=== PATIENT | male | born 1935 | race Caucasian/White ===

== ENCOUNTER 2017-02-06 14:16 | Outpatient (CLI) | payer MEDICARE, OTHER ==
[2015-11-01 05:51] VITALS: BP 141/64
[2017-02-06 14:41] LABS: BASOPHILS % 1.4 (0.0-1.5); EOSINOPHILS % 1.5 % (0.0-6.8); MEAN CORPUSCULAR HEMOGLOBIN 31.7 pg (28.0-34.0); MONOCYTES % 7.5 % (0.0-11.0); NEUTROPHILS # 3.9 # k/uL (1.4-7.7)
[2017-02-06 15:01] LABS: eGFR (African) > 60; eGFR (Non-African) > 60
--- NOTE | 2017-02-06 15:22 | Diagnostic Imaging Report ---
[facility] [address] [facility].[address] [address] Report Submission Date: February 06, 2017 3:08:11 PM CDT Patient Study Name: ISH CAMACHO Date: February 06, 2017 2:43:48 PM CDT Modality Type: CR Gender: M Description: CHEST : 37 Institution: [facility] [place] [facility] Physician: TRINIDAD ADAM - ANJELICA 2 views of the chest History: CHEST PAIN. COUGH. SHORTNESS OF BREATH Findings: Comparison: November 01, 2015 Low lung volumes Patchy opacity right lung base. Minimal left basal atelectasis. No pleural effusion or pneumothorax No acute osseous pathology Demineralized bones with degenerative changes of the thoracic spine Impression: 1. Left basilar atelectasis. 2. Right basilar patchy airspace disease with vascular crowding due to low lung volumes. Electronically signed on February 06, 2017 3:08:11 PM CDT by: Cassandra PANTOJA
== END 2017-02-06 14:17 ==
LOC: RT 14:16
PROVIDERS: ATTEND Family Medicine
DX: R07.89 Other chest pain (principal)
CPT/HCPCS: 36415; 71020; 80048; 84484; 85025

== ENCOUNTER 2017-05-31 13:33 | Outpatient (CLI) | payer MEDICARE, OTHER ==
[2015-11-01 05:51] VITALS: BP 141/64
[2017-05-31 13:50] LABS: BASOPHILS % 1.7 (0.0-1.5); EOSINOPHILS % 4.9 % (0.0-6.8); MEAN CORPUSCULAR HEMOGLOBIN 30.6 pg (28.0-34.0); MEAN CORPUSCULAR VOLUME 87.9 fl (80.0-100.0); MONOCYTES % 7.6 % (0.0-11.0); NEUTROPHILS # 4.6 # k/uL (1.4-7.7)
[2017-05-31 14:17] LABS: eGFR (African) 58; eGFR (Non-African) 48
== END 2017-05-31 13:34 ==
LOC: LAB 13:33
PROVIDERS: ATTEND Family Medicine
DX: R42 Dizziness and giddiness (principal)
CPT/HCPCS: 36415; 80053; 85025

== ENCOUNTER 2017-07-11 13:58 | Outpatient (CLI) | payer MEDICARE, OTHER ==
[2015-11-01 05:51] VITALS: BP 141/64
== END 2017-07-11 14:00 ==
LOC: CARD 13:58
PROVIDERS: ATTEND Internal Medicine Cardiovascular Disease
DX: I25.10 Atherosclerotic heart disease of native coronary artery without angina pectoris (principal); I10 Essential (primary) hypertension; E78.5 Hyperlipidemia, unspecified
CPT/HCPCS: G0463

== ENCOUNTER 2017-07-25 13:21 | Outpatient (CLI) | payer MEDICARE, OTHER ==
[2015-11-01 05:51] VITALS: BP 141/64
== END 2017-07-25 13:22 ==
LOC: CARD 13:21
PROVIDERS: ATTEND Internal Medicine Cardiovascular Disease
DX: I42.9 Cardiomyopathy, unspecified (principal)
CPT/HCPCS: 93350

== ENCOUNTER 2017-11-02 13:16 | Outpatient (CLI) | payer MEDICARE, OTHER ==
[2015-11-01 05:51] VITALS: BP 141/64
[2017-11-02 13:47] LABS: BASOPHILS % 1.5 (0.0-1.5); MEAN CORPUSCULAR HEMOGLOBIN 30.1 pg (28.0-34.0); MEAN CORPUSCULAR VOLUME 91.5 fl (80.0-100.0); MONOCYTES % 6.3 % (0.0-11.0); NEUTROPHILS # 3.9 # k/uL (1.4-7.7)
[2017-11-02 14:19] LABS: eGFR (African) > 60; eGFR (Non-African) 52
== END 2017-11-02 13:18 ==
LOC: LAB 13:16
PROVIDERS: ATTEND Family Medicine
DX: R73.9 Hyperglycemia, unspecified (principal); R20.2 Paresthesia of skin
CPT/HCPCS: 36415; 80053; 82607; 82746; 83036; 84443; 85025

== ENCOUNTER 2018-01-25 14:30 | Outpatient (CLI) | payer MEDICARE, OTHER ==
[2015-11-01 05:51] VITALS: BP 141/64
[2018-01-25 14:54] LABS: MEAN CORPUSCULAR HEMOGLOBIN 30.5 pg (28.0-34.0); MEAN CORPUSCULAR VOLUME 92.7 fl (80.0-100.0)
[2018-01-25 15:12] LABS: eGFR (African) > 60; eGFR (Non-African) 56
== END 2018-01-25 14:32 ==
LOC: LAB 14:30
PROVIDERS: ATTEND Family Medicine
DX: E11.9 Type 2 diabetes mellitus without complications (principal); R53.83 Other fatigue
CPT/HCPCS: 36415; 80053; 83036; 84443; 85027

== ENCOUNTER 2018-02-14 14:25 | Outpatient (CLI) | payer MEDICARE, OTHER ==
[2015-11-01 05:51] VITALS: BP 141/64
--- NOTE | 2018-02-16 13:36 | OP Clinic Progress Note ---
REASON FOR VISIT: This 83-year-old man with hearing aids has had his ears cleaned but it is still rock hard in the left ear canal. He wears hearing aids. Most of the debris in the right ear has been cleaned. I cleaned a little additional from the right ear canal under the microscope. Under the microscope, I cleaned a significant amount of rock hard inspissated skin and old fungus. He is fairly markedly improved. He still has a mild otitis externa that is secondary to the hard compression of the skin and micro-debris. PLAN: I recommended some antifungal cream for a small cellulitis of the conchal bowel. I suggested getting his ears recheck and recleaned in about 6 months before they both occlude and cause significant otitis externa. The patient has chosen to make an appointment on his own recognizance on a p.r.n. basis. cc: Dr. Christiana PANTOJA
== END 2018-02-14 14:30 ==
LOC: ENT 14:25
PROVIDERS: ATTEND Otolaryngology
DX: H60.93 Unspecified otitis externa, bilateral (principal); H61.23 Impacted cerumen, bilateral
CPT/HCPCS: 69210; G0463

== ENCOUNTER 2019-06-05 13:45 | Outpatient (CLI) | payer MEDICARE, OTHER ==
[2015-11-01 05:51] VITALS: BP 141/64
[2019-06-05 14:15] LABS: BASOPHILS % 0.5 % (0.0-1.5); NEUTROPHILS # 4.4 # k/uL (1.4-7.7)
[2019-06-05 14:34] LABS: eGFR (Non-African) 53
--- NOTE | 2019-06-06 10:24 | Diagnostic Imaging Report ---
TRINIDAD ADAM [facility] [address] [facility] [address] [place] [address]. [id number] Report Submission Date: Jun 05, 2019 2:37:22 PM CDT Patient Study Name: ISH CAMACHO Date: Jun 05, 2019 1:59:08 PM CDT Modality Type: DX Gender: M Description: ABDOMEN 1VIEW : 37 Institution: [facility] Physician: TRINIDAD ADAM Exam: Single-view abdomen. History: Right lower quadrant pain. No previous studies are available for comparison. Scattered loops of bowel gas in both large and small intestine is noted with a moderate amount of retained fecal material seen in the colon. A rounded calcification in the right upper quadrant could represent gallstone. It is difficult to exclude ureteral stones on this study due to the numerous phleboliths in the pelvis. Degenerate changes in the lumbar spine is noted. Impression: Nonspecific bowel gas pattern. Probable gallstone. Difficult to exclude distal ureteral stones. CT may be necessary to further evaluate. Electronically signed on Jun 05, 2019 2:37:22 PM CDT by: Carson PANTOJA
== END 2019-06-05 13:47 ==
LOC: RAD 13:45
PROVIDERS: ATTEND Family Medicine
DX: R10.31 Right lower quadrant pain (principal)
CPT/HCPCS: 36415; 74018; 80053; 85025

== ENCOUNTER 2019-06-06 12:38 | Outpatient (CLI) | payer MEDICARE, OTHER ==
[2015-11-01 05:51] VITALS: BP 141/64
--- NOTE | 2019-06-13 09:21 | Diagnostic Imaging Report ---
TRINIDAD ADAM [facility] [address] [facility] [address] [place], [place]. [address] Report Submission Date: Jun 06, 2019 1:55:59 PM CDT Patient Study Name: ISH CAMACHO Date: Jun 06, 2019 12:43:28 PM CDT Modality Type: CT\SR Gender: M Description: CT ABD PELVIS W/O CO : 37 Institution: [facility] Physician: TRINIDAD ADAM Exam: CT abdomen and pelvis without contrast. History: Right upper quadrant pain. Axial images through the abdomen and pelvis without oral or IV contrast is submitted along with sagittal and coronal reformatted images. Calcified granuloma in the posterior right lower lung field is noted. No kamilah consolidation or effusion in the visualized lower lung chandler are noted. No free intraperitoneal air is identified. A 1.6 cm stone in the neck of the gallbladder is identified. Punctate calcifications in the liver may indicate old granulomatous disease. No other space-occupying lesion in the liver or spleen is noted. The pancreas is normal in attenuation. The adrenal glands are normal configuration. The abdominal aorta is of normal caliber and associated with atherosclerotic plaque. No periaortic lymphadenopathy is identified. Bilateral renal stones are identified. No hydronephrosis or hydroureter is identified. The urinary bladder is distended without intrinsic filling defect. The appendix is of normal configuration. The small bowel is of normal caliber. Air and stool seen throughout the large intestine. No inflammatory changes in the mesentery or ascites are identified. Diverticula in the sigmoid colon is noted. Degenerate changes in the lumbar spine are noted. Impression: Old granulomatous disease. Cholelithiasis. Bilateral renal stones. No hydronephrosis or hydroureter. The appendix is of normal configuration. No inflammatory changes in the mesentery or ascites is identified. Nonspecific bowel gas pattern. Sigmoid diverticulosis. Electronically signed on Jun 06, 2019 1:55:59 PM CDT by: Carson APNTOJA
== END 2019-06-06 12:40 ==
LOC: RAD 12:38
PROVIDERS: ATTEND Family Medicine
DX: R10.31 Right lower quadrant pain (principal)
CPT/HCPCS: 74176

== ENCOUNTER 2019-08-14 14:47 | Outpatient (CLI) | payer MEDICARE, OTHER ==
[2015-11-01 05:51] VITALS: BP 141/64
--- NOTE | 2019-08-15 06:08 | Diagnostic Imaging Report ---
PATIENT MR#: [id number] PATIENT PATIENT NAME: ISH CAMACHO DATE OF : 1935 REFERRING PHYSICIAN: Newton Lopez EXAM DATE: 08/14/2019 ACCESSION NUMBER: [id number] EXAM DESCRIPTION: CHEST 2VIEW HISTORY: Chest pain with HX of CAD. COMPARISON: February 06, 2017. CHEST RADIOGRAPH, FRONTAL AND LATERAL: Upper mediastinum: Not widened. Heart: No cardiomegaly. CAD. Lungs: No lobar infiltrate, pulmonary edema, pneumothorax or significant effusion. Skeleton: Thoracic spondylosis. IMPRESSION: Clear lungs. Read by: Dr. Jeff Jennings Transcribed by: Jeff Jennings Transcribed Date: 08/15/2019 6:08:35 AM Electronically signed by: Dr. Jeff Jennings Date signed: 08/15/2019 6:08:48 AM
== END 2019-08-14 14:57 ==
LOC: RT 14:47
PROVIDERS: ATTEND Family Medicine
DX: I25.10 Atherosclerotic heart disease of native coronary artery without angina pectoris (principal); R07.2 Precordial pain
CPT/HCPCS: 36415; 71046; 84484; 93005